=== PATIENT | male | born 1980 | race African-American/Black ===

== ENCOUNTER → 2017-10-25 | Outpatient (REF) | payer BC | LOC: M SFHCLERA 09:33 | DX: J02.9 Acute pharyngitis, unspecified (principal) | CPT/HCPCS: 87880 ==

== ENCOUNTER → 2018-05-10 | Outpatient (CLI) | payer BC ==
--- NOTE | 2018-05-11 02:16 | REP ---
Clinical: Chronic elbow pain . Technique: AP, lateral, bilateral oblique views of the left elbow. Findings: No acute fracture or dislocation is appreciated. Joint spaces and surrounding soft tissues appear normal. Lateral view demonstrates normal positioning to the anterior and posterior fat pads without evidence for effusion/hemarthrosis. No subcutaneous emphysema or foreign body identified. Impression: Normal left elbow radiographs. Electronically Signed by Guerrero Ronquillo MD 05/11/2018 02:07 A
== END ==
LOC: M RAD 14:57
PROVIDERS: ATTEND Physician Assistant
DX: M25.522 Pain in left elbow (principal)